=== PATIENT | male | born 1965 | race Caucasian/White ===

== ENCOUNTER 2017-09-25 10:23 | Emergency (ER) | payer SELFPAY ==
[2017-09-25] MEDS ORDERED: NITROGLYCERIN 0.4MG SL TABLET #25 BTL SL PRN (10:56)
[2017-09-25] MEDS ORDERED: ASPIRIN 81 MG CHEWABLE TABLET PO ONE (10:56)
[2017-09-25 11:49] LABS: BLOOD UREA NITROGEN 11 mg/dL (6-20); CKMB 3.1 ng/mL (<6.73); CREATINE PHOSPHOKINASE 157 U/L (39-308); CREATININE 0.8 mg/dL (0.7-1.2); EST GLOMERULAR FILTRATION RATE > 60 mL/min; GLUCOSE,RANDOM 98 mg/dL (74-109)
[2017-09-25 12:19] LABS: BASO % 0.2 % (0-6); EOS % 1.2 % (0-6); GRAN % 64.6 % (47-80); HEMATOCRIT 41.2 % (42.0-52.0); HEMOGLOBIN 13.6 gm/dl (14.0-18.0); MEAN CELL VOLUME 94.5 fl (81-97); MEAN CORPUSCULAR HEMOGLOBIN 31.1 pg (27-33); MEAN PLATELET VOLUME 11.1 fl (7.4-10.4); PLATELET COUNT 202 K/uL (130-400); RED BLOOD COUNT 4.36 M/uL (4.40-5.70); WHITE BLOOD COUNT W/O DIFF 5.7 K/uL (4.2-12.2)
[2017-09-25] MEDS ORDERED: KETOROLAC 30 MG/ML VIAL IVP ONE (12:42)
[2017-09-25] MEDS ORDERED: ONDANSETRON HCL IV 4 MG/2 ML VIAL IVP ONE (13:21)
[2017-09-25] MEDS ORDERED: HYDROMORPHONE HCL 1MG/ML **SYRINGE IVP ONE (13:21)
--- NOTE | 2017-09-25 15:24 | Emergency Department Record ---
History of Present Illness - General Chief Complaint: Numbness Stated Complaint: LEFT ARM PAIN AND NUMBNESS Time Seen by Provider: 09/25/17 10:48 Source: Patient Mode of Arrival: Wheelchair Limitations: No limitations - History of Present Illness Initial Comments: pt c/o intermittant numbness in his l arm and l thoracic pain that is not effected by movement. he works as a dry [employer] and just moved here from [place]. he denies cp Onset/Timin -: Week(s) Location: Left arm History of same: No Place: Other Quality: Constant, Numb Context: Gradual onset Treatments Prior to Arrival: Other Treatment Prior to Arrival Comment:: Elizave - Bahman Coma Scale Eye Response: (4) Open spontaneously Motor Response: (6) Obeys commands Verbal Response: (5) Oriented Bahman Total: 15 - Related Data Home Medications: Previous Rx's Medication Instructions Recorded Cyclobenzaprine HCl [Flexeril] 5 mg PO TID #14 tab 09/25/17 Hydrocodone/Acetaminophen [[place] 1 each PO Q6HR #10 tablet 09/25/17 5-325 Tablet] Ibuprofen [Motrin] 800 mg PO Q8H PRN #20 tab 09/25/17 Allergies/Adverse Reactions: Allergies Allergy/AdvReac Type Severity Reaction Status Date / Time No Known Drug Allergies Allergy Verified 09/25/17 10:43 Travel Screening - Travel/Exposure Within Last 30 Days Have you traveled within the last 30 days?: No - Travel/Exposure Within Last Year Have you traveled outside the [place] in the last year?: No - Additonal Travel Details Have you been exposed to anyone with a communicable illness?: No - Travel Symptoms Symptom Screening: None Review of Systems Reviewed: No additional complaints except as noted below Constitutional: Reports: As per HPI. Denies: Chills, Fever, Malaise, Night sweats, Weakness, Weight change Eyes: Reports: As per HPI. Denies: Eye discharge, Eye pain, Photophobia, Vision change ENT: Reports: As per HPI. Denies: Congestion, Dental pain, Ear pain, Epistaxis , Hearing loss, Throat pain Respiratory: Reports: As per HPI. Denies: Cough, Dyspnea, Hemoptysis, Stridor, Wheezes Cardiovascular: Reports: As per HPI. Denies: Arrhythmia, Chest pain, Dyspnea on exertion, Edema, Murmurs, Orthopnea, Palpitations, Paroxysmal nocturnal dyspnea, Rheumatic Fever, Syncope Endocrine: Reports: As per HPI. Denies: Fatigue, Heat or cold intolerance, Polydipsia, Polyuria Gastrointestinal: Reports: As per HPI. Denies: Abdominal pain, Constipation, Diarrhea, Hematemesis, Hematochezia, Melena, Nausea, Vomiting Genitourinary: Reports: As per HPI. Denies: Dysuria, Frequency, Hematuria, Incontinence, Retention, Testicular pain, Testicular mass, Urgency Musculoskeletal: Reports: As per HPI. Denies: Arthralgia, Back pain, Gout, Joint swelling, Myalgia, Neck pain Skin: Reports: As per HPI. Denies: Bruising, Change in color, Change in hair/ nails, Lesions, Pruritus, Rash Neurological: Reports: As per HPI. Denies: Abnormal gait, Confusion, Headache, Numbness, Paresthesias, Seizure, Tingling, Tremors, Vertigo, Weakness Psychiatric: Reports: As per HPI. Denies: Anxiety, Auditory hallucinations, Depression, Homicidal thoughts, Suicidal thoughts, Visual hallucinations Hematological/Lymphatic: Reports: As per HPI. Denies: Anemia, Blood Clots, Easy bleeding, Easy bruising, Swollen glands Past Medical History - SOCIAL HISTORY Smoking Status: Former smoker Alcohol Use: None Drug Use: None - RESPIRATORY Hx Respiratory Disorders: No - CARDIOVASCULAR Hx Cardio Disorders: No - NEURO Hx Neuro Disorders: No - GI Hx GI Disorders: No - Hx Genitourinary Disorders: No - ENDOCRINE Hx Endocrine Disorders: No - MUSCULOSKELETAL Hx Musculoskeletal Disorders: No - PSYCH Hx Psych Problems: No - HEMATOLOGY/ONCOLOGY Hx Hematology/Oncology Disorders: Yes Hx Cancer: Yes (skin) Family Medical History Any Significant Family History?: No Physical Exam - General General Appearance: Alert, Oriented x3, Cooperative, Mild distress - Head Head exam: Normal inspection - Eye Eye exam: Normal appearance, PERRL, EOMI Pupils: Normal accommodation - ENT ENT exam: Normal exam, Mucous membranes moist, Normal external ear exam, Normal orophraynx Ear exam: Normal external inspection. negative: External canal tenderness Nasal Exam: Normal inspection. negative: Discharge, Sinus tenderness Mouth exam: Normal external inspection, Tongue normal Teeth exam: Normal inspection. negative: Dental caries Throat exam: Normal inspection. negative: Tonsillar erythema, Tonsillar exudate - Neck Neck exam: Normal inspection, Full ROM. negative: Tenderness - Respiratory Respiratory exam: Normal lung sounds bilaterally. negative: Respiratory distress - Cardiovascular Cardiovascular Exam: Regular rate, Normal rhythm, Normal heart sounds - GI/Abdominal GI/Abdominal exam: Soft, Normal bowel sounds. negative: Tenderness - Rectal Rectal exam: Deferred - exam: Deferred - Extremities Extremities exam: Normal inspection, Full ROM, Normal capillary refill. negative: Tenderness - Back Back exam: Reports: Normal inspection, Full ROM. Denies: Muscle spasm, Rash noted, Tenderness - Neurological Neurological exam: Alert, CN II-XII intact, Normal gait, Oriented X3, Other (no neuro deficit at this time) - Psychiatric Psychiatric exam: Normal affect, Normal mood - Skin Skin exam: Dry, Intact, Normal color, Warm Course Vital Signs 09/25/17 09/25/17 09/25/17 10:34 11:22 12:30 Temperature 97.8 F Pulse Rate 90 Pulse Rate [ 16 L 64 Pulse Ox Probe] Respiratory 16 16 16 Rate Blood Pressure 121/81 Blood Pressure 105/66 108/76 [Left Arm] Pulse Ox 99 99 09/25/17 09/25/17 09/25/17 13:30 13:40 15:00 Temperature Pulse Rate Pulse Rate [ 65 66 66 Pulse Ox Probe] Respiratory 16 16 16 Rate Blood Pressure Blood Pressure 104/72 116/78 112/75 [Left Arm] Pulse Ox 99 99 99 - Reevaluation(s) Reevaluation #1: 09/25/17 15:23 d/w stephani and f/u arranged w further work up and mri Medical Decision Making - Lab Data Result diagrams: 09/25/17 11:08 09/25/17 11:08 Lab Results 09/25/17 09/25/17 09/25/17 Range/Units 11:08 11:08 11:08 WBC 5.7 (4.2-12.2) K/uL RBC 4.36 L (4.40-5.70) M/uL Hgb 13.6 L (14.0-18.0) gm/dl Hct 41.2 L (42.0-52.0) % MCV 94.5 (81-97) fl MCH 31.1 (27-33) pg MCHC 33.0 (32-36) g/dl RDW 12.0 (11.5-14.5) % Plt Count 202 (130-400) K/uL MPV 11.1 H (7.4-10.4) fl Gran % 64.6 (47-80) % Lymphocytes % 23.0 (16-45) % Monocytes % 11.0 H (0-9) % Eosinophils % 1.2 (0-6) % Basophils % 0.2 (0-6) % D-Dimer 0.25 (0-0.59) mg/L FEU Sodium 142 (136-145) mmol/L Potassium 4.3 (3.4-4.5) mmol/L Chloride 103 (98-107) mmol/L Carbon Dioxide 28.0 (22-29) mmol/L Anion Gap 11.0 (7-16) BUN 11 (6-20) mg/dL Creatinine 0.8 (0.7-1.2) mg/dL Estimated GFR > 60 mL/min Random Glucose 98 (74-109) mg/dL Calcium 9.1 (8.6-10.0) mg/dL Creatine Kinase 157 (39-308) U/L CK-MB (CK-2) 3.1 (<6.73) ng/mL Troponin T < 0.010 (0-0.010) ng/mL Disposition Disposition: Discharge Clinical Impression: Cervical radiculopathy Disposition: Home, Self-Care Condition: (1) Good Instructions: Cervical Disc Herniation (ED), Cervical Radiculopathy (ED) Additional Instructions: follow up with stephani and dr sandra hendrix. return sooner if worse. moist heat Prescriptions: Hydrocodone/Acetaminophen [[place] 5-325 Tablet] 1 each PO Q6HR #10 tablet Cyclobenzaprine HCl [Flexeril] 5 mg PO TID #14 tab Ibuprofen [Motrin] 800 mg PO Q8H PRN #20 tab PRN Reason: Pain - Mild (1-4) Quality - Quality Measures Quality Measures: N/A - Blood Pressure Screening Does Patient Have Any of the Following: No Blood Pressure Classification: Pre-Hypertensive BP Reading Systolic Measurement: 121 Diastolic Measurement: 81 Screening for High Blood Pressure: < Pre-Hypertensive BP, F/U Documented > [ G8950] Pre-Hypertensive Follow-up Interventions: Follow-up with rescreen every year.
--- NOTE | 2017-09-26 10:43 | RADIOLOGY REPORT ---
DATE: 09/25/2017 at 11:52 a.m. EXAM: CERVICAL SPINE. HISTORY: Stabbing pain in shoulder for two weeks. No known injury. TECHNIQUE: Six views of the cervical spine. COMPARISON: None. FINDINGS: Some spurring anteriorly in the mid to lower cervical spine. Cervical and vertebral disc spaces are maintained. No prevertebral soft tissue swelling evident. No definite fracture of the cervical spine identified. There is probably some foraminal stenosis related to some uncovertebral joint degenerative change particularly involving the third and fourth neural foramina bilaterally. IMPRESSION: 1. DEGENERATIVE CHANGE IN THE CERVICAL SPINE DESCRIBED ABOVE. 2. NO DEFINITE FRACTURE OR PREVERTEBRAL SOFT TISSUE SWELLING EVIDENT. JOB NUMBER: [id number] [facility]
--- NOTE | 2017-09-26 10:52 | RADIOLOGY REPORT ---
DATE: 09/25/2017 at 11:52 a.m. EXAM: TWO-VIEW, CHEST. HISTORY: Stabbing pain for two weeks in shoulder. No known injury. TECHNIQUE: PA and lateral views. COMPARISON: None. FINDINGS: Heart size is normal. The lungs appear expanded with no acute infiltrate seen. No pleural effusion or pneumothorax evident. Mild to moderate spurring in the mid to lower thoracic spine. IMPRESSION: 1. SOME SPURRING IN THE SPINE. 2. NO ACUTE INFILTRATE IDENTIFIED. JOB NUMBER: [id number] [facility]
--- NOTE | 2017-09-26 10:58 | CT SCAN REPORT ---
DATE: 09/25/2017 at 11:37 a.m. EXAM: HEAD CT WITHOUT CONTRAST. HISTORY: Left arm numbness for two weeks. No known injury. TECHNIQUE: Axial CT scan of the head performed without intravenous contrast. COMPARISON: None. FINDINGS: No definite acute intracranial hemorrhage identified. No focal mass effect or midline shift apparent. No definite acute infarct or intracranial mass lesion seen. Mild generalized atrophy. Moderate membrane thickening of both maxillary antra and in the right ethmoid sinus with extension into the inferior aspect of the right frontal sinus. No depressed calvarial fracture is evident. IMPRESSION: 1. NO DEFINITE ACUTE INTRACRANIAL HEMORRHAGE OR FOCAL MASS EVIDENT. 2. MILD GENERALIZED ATROPHY. 3. SOME MEMBRANE THICKENING IN SEVERAL OF THE PARANASAL SINUSES DESCRIBED ABOVE. JOB NUMBER: [id number] [facility]
--- NOTE | 2017-09-26 13:25 | CT SCAN REPORT ---
DATE: 09/25/2017 at 1:52 p.m. EXAM: EMERGENCY CERVICAL SPINE CT WITHOUT CONTRAST. HISTORY: Pain in the left shoulder radiating down the left arm for two weeks. No known injury. TECHNIQUE: Axial CT scan of the entire cervical spine performed without intravenous contrast. Because of patient motion artifact on the upper images, several images were repeated at no additional charge to the patient. COMPARISON: No prior cervical CT, but comparison is made to the cervical plain film series from earlier today. FINDINGS: There is moderate membrane thickening inferiorly in both maxillary antra. No apical pneumothorax evident. No definite fracture of the cervical spine identified. No prevertebral soft tissue swelling is evident. Degenerative change at the odontoid - anterior arch of C1 articulation. Mild spurring at several of the cervical intervertebral disc spaces as well. Multilevel foraminal stenosis evident in the cervical spine. Visually there is a small amount of ligamentous calcification adjacent to the tip of the spinous process of C7. IMPRESSION: 1. NO DEFINITE FRACTURE OR PREVERTEBRAL SOFT TISSUE SWELLING EVIDENT. 2. DEGENERATIVE CHANGES IN THE CERVICAL SPINE DESCRIBED ABOVE. 3. MODERATE MEMBRANE THICKENING IN THE MAXILLARY SINUSES BILATERALLY. JOB NUMBER: [id number] [facility]
--- NOTE | 2017-09-26 13:32 | CT SCAN REPORT ---
DATE: 09/25/2017 at 2:05 p.m. EXAM: EMERGENCY CT SCAN OF THE CHEST WITH CONTRAST. HISTORY: Left-sided pain, particularly in the shoulder extending down the left arm. No known injury. TECHNIQUE: Axial CT scan of the chest performed following the intravenous administration of 100 mL of Omnipaque 300 as the intravenous contrast. COMPARISON: No prior chest CT with which to compare. Comparison is made to the two-view chest x-ray from earlier today. FINDINGS: No pneumothorax is identified. There is some minor dependent atelectasis in the lung bases. Elsewhere the lungs appear essentially clear. Some minor fluid in the superior pericardial recess. No definite adenopathy is seen in the chest. A small calcification in the upper pole of the left kidney consistent with a nonobstructing calculus. Prominent spurring in the lower thoracic spine. A small amount of pericardial fluid along the inferior aspect of the heart on the right as well. IMPRESSION: 1. A SMALL AMOUNT OF PERICARDIAL FLUID. 2. PROMINENT SPURRING IN THE SPINE. 3. A SMALL, NONOBSTRUCTING CALCULUS IN THE UPPER POLE OF THE LEFT KIDNEY. 4. NO ACUTE INFILTRATE OR PNEUMOTHORAX EVIDENT. JOB NUMBER: [id number] [facility]
== END 2017-09-25 15:43 | disposition home or self-care (01) ==
LOC: ER 10:23
DX: M54.12 Radiculopathy, cervical region (principal); M25.512 Pain in left shoulder
CPT/HCPCS: 99284 ×2; 96374; 96375; 82550; 85025; 82553; 80048; 84484; 85379; 71020; 72050; 72125; 71260; 70450; 93005; 93010; Q9967; J1885; J2405; J1170